=== PATIENT | female | born 1950 | race African-American/Black ===

== ENCOUNTER → 2017-06-02 | Outpatient (CLI) | payer OTHER ==
[~2017-06-02] VITALS: Ht 167.6 cm; Wt 88.5 kg
[~2017-06-02] MED LIST: CYMBALTA30 MG PO; HYDROCODONE-AP1 EAC6 PO; MOBIC7.5 MG PO; MULTI VITAMIN1 EACH PO; NEURONTIN 300300 M1 PO; PENTOXIFYLLINE400 MG PO; PROPYLTHIOURACI50 MG PO; TRIAMTERENE/HCT1 CA1 PO; VITAMIN E400 UNIT PO
--- NOTE | ~2017-06-02 | HPC ---
[facility] [place] [address] PAIN MANAGEMENT CONSULTATION Name: LILIANA HONG Room #: REG [facility] Kat#: [id number] Admission: 06/02/17 Attend Phys: Jose Damon DO Discharge: Date of : 54 Report #: [id number] THIS REPORT FOR: //name// CC: Fanny Damon DATE OF SERVICE: 06/02/2017 The patient is a 67-year-old female seen in consultation at the request of Dr. Jack for assistance with management of right thigh pain. The patient notes pain began 3-4 weeks ago. Denies specific antecedent trauma and overuse. Pain is in the anterior lateral thigh, exacerbated with any contact or weightbearing. She has subjective weakness in the right leg, though she denies any paresthesia or radicular component to the pain. She rates the pain at "10" on a VAS despite taking hydrocodone. She describes continuous, steady, constant, burning, aching, gnawing, throbbing, pounding, stabbing pain. She gets some relief putting a topical aloe vera gel on the site. Pain is significantly exacerbated with contact. The patient relates exacerbation of pain to rupture of her breast tissue expanders. She is a cancer survivor having had bilateral mastectomy, chemo, and radiation therapy. 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 Mastectomy was 10/13/2016. The tissue bulk fluids handler ruptured 3-4 weeks ago and it has been surgically excised. She still has some diffuse chest wall post-surgical pain. She does complain bitterly, however, of this right thigh pain as her primary pain complaint. REVIEW OF SYSTEMS: Complete review of systems was attached to the chart and gone over with the patient. She is single. She has 3 adult children who live in [place]. She does not smoke or drink alcohol to excess. History of hyperthyroidism. She does take propylthiouracil. Gabapentin for neuropathic pain. She has some fluid retention for which she takes triamterene/hydrochlorothiazide. Other than the aforementioned cancer concern, she has enjoyed reasonably good health. She works as a patient daycare provider. She is semi-retired. Pain impact score is fairly high, averaging 65/70. PHYSICAL EXAMINATION: Reveals a 5 feet 6 inches, 195-pound female, BMI is 31.5 kg/m2, blood pressure is 166/86, pulse 94, respirations 16. Cranial nerves 2-12 are grossly intact. Pupils equal, react to light and accommodation. Extraocular muscles are intact. Cervical range of motion is full. Thyroid is large. Upper extremity strength shows slight diminution of right deltoid and triceps strength. It does exacerbate some pain in the right shoulder. Cancer [facility] [address] [place] [address] PAIN MANAGEMENT CONSULTATION Name: LILIANA HONG Room #: REG CLCara Stephens#: [id number] Admission: 06/02/17 Attend Phys: Jose Damon DO Discharge: Date of : 54 Report #: [id number] was right-sided. Heart is regular rhythmical without murmur. Lungs: Clear to auscultation. Abdomen shows a modestly endomorphic build. She is not tender over the anterior superior iliac spine. I cannot reproduce pain palpating over the ilioinguinal nerves or femoral nerve at the ilioinguinal ligament. She does have significant pain with palpation of the anterior lateral thigh. Passive rotation of the hip is unremarkable. Gait is modestly antalgic. Lower extremity strength is preserved. Straight leg raising negative. Patellar and Achilles reflexes are diminished, but symmetric. There are no recent diagnostic studies available for evaluation at this time. ASSESSMENT: Symptomatic myofascial pain, right thigh. RECOMMENDATIONS: We will check x-ray of the right femur, hip joint and pelvis to rule out the extremely unlikely possibility of metastatic lesion. We will start the patient on meloxicam 7.5 b.i.d. to help with prostaglandin mediated pain and Cymbalta 30 mg daily to help with myofascial type pain component. Follow up in 2 weeks to reevaluate. We may consider trigger point injections versus possible lateral femoral cutaneous nerve block at next visit. Thank you for allowing me to participate in the patient's care. Her right thigh pain is difficult to immediately identify. We will seek to find etiology of this pain while ruling out any treatable causes. <ELECTRONICALLY SIGNED> By: Jose Damon DO 06/07/17 [id number] Jose Damon DO /nt
[2017-06-02 14:57] VITALS: BP 166/86
== END ==
LOC: PAIN 07:25
DX: M79.1 Myalgia (principal); M79.651 Pain in right thigh

== ENCOUNTER 2020-02-14 20:07 | Emergency (ER) | payer OTHER ==
[~2020-02-14] VITALS: Ht 165.1 cm; Wt 101.6 kg
[2020-02-14] MEDS ORDERED: MOBIC7.5 MG PO (21:24)
[2020-02-14] MEDS ORDERED: CYCLOBENZAPRINE5 MG PO (21:24)
[2020-02-14 21:55] VITALS: BP 132/55
== END 2020-02-14 21:55 | disposition home or self-care (01) ==
LOC: ER 20:07
DX: S16.1XXA Strain of muscle, fascia and tendon at neck level, initial encounter (principal); M25.562 Pain in left knee; E05.90 Thyrotoxicosis, unspecified without thyrotoxic crisis or storm; Z85.3 Personal history of malignant neoplasm of breast; Z79.899 Other long term (current) drug therapy; Z98.890 Other specified postprocedural states; V89.0XXA Person injured in unspecified motor-vehicle accident, nontraffic, initial encounter; Y93.89 Activity, other specified; Y92.481 Parking lot as the place of occurrence of the external cause; Y99.8 Other external cause status